=== PATIENT | male | born 1970 | race Caucasian/White ===

== ENCOUNTER 2019-08-14 19:06 | Emergency (ER) | payer OTHER ==
[~2019-08-14] VITALS: Ht 182.9 cm; Wt 115.7 kg
[~2019-08-14 19:06] MED LIST: DOXYCYCLINE 10100 M1 PO; FIRST-TESTOSTER60 G1 SUBQ
[2019-08-14] MEDS ORDERED: FLEXERIL PO (20:22)
[2019-08-14] MEDS ORDERED: NORCO 5-325 TA1 EAC1 PO (20:22)
[2019-08-14] MEDS ORDERED: ZOFRAN4 MG PO (20:22)
[2019-08-14] MEDS ORDERED: PREDNISONE 10 M10 MG PO (20:23)
[2019-08-14 20:40] VITALS: BP 151/78
== END 2019-08-14 20:41 | disposition home or self-care (01) ==
LOC: M.ERS 19:06
DX: S16.1XXA Strain of muscle, fascia and tendon at neck level, initial encounter (principal); M54.9 Dorsalgia, unspecified; V89.2XXA Person injured in unspecified motor-vehicle accident, traffic, initial encounter; Y92.89 Other specified places as the place of occurrence of the external cause; Y93.89 Activity, other specified; Y99.8 Other external cause status

== ENCOUNTER 2021-08-08 01:56 | Emergency (ER) | payer OTHER ==
[~2021-08-08] VITALS: Ht 182.9 cm; Wt 122.5 kg
[~2021-08-08 01:56] MED LIST changes: +FLEXERIL PO; +NORCO 5-325 TA1 EAC1 PO; +PREDNISONE 10 M10 MG PO; +ZOFRAN4 MG PO
[2021-08-08] MEDS ORDERED: COZAAR 25 MG TA25 MG PO (02:02)
[2021-08-08 03:33] LABS: CALCIUM 8.8 mg/dL (8.5-10.1); CREATININE 1.3 mg/dL (0.6-1.3); POTASSIUM 4.4 mmol/L (3.5-5.1)
[2021-08-08 03:37] LABS: ABSOLUTE BASOPHILS 0.1 thou/uL (0.0-0.2); ABSOLUTE EOSINOPHILS 0.2 thou/uL (0.0-0.7); ABSOLUTE LYMPHOCYTES 1.6 thou/uL (0.8-5.3); ABSOLUTE MONOCYTES 0.9 thou/uL (0.0-1.2); ABSOLUTE NEUTROPHILS 7.3 thou/uL (1.6-8.1); BASOPHILS 0.9 %; EOSINOPHILS 2.1 %; HEMATOCRIT 43.9 % (42.0-52.0); HEMOGLOBIN 15.2 gm/dL (14.0-18.0); LYMPHOCYTES 15.6 %; MCH 30.3 pg (26.0-34.0); MCHC 34.6 g/dL (28.0-37.0); MCV 87.6 fL (80.0-100.0); MONOCYTES 9.1 %; MPV 8.4 fl. (7.2-11.1); NUCLEATED RBCS 0 /100WBC; PLATELET COUNT* 246 thou/uL (150-400); POLYS 72.3 %; RDW-CV 14.1 % (10.5-14.5); WBC 10.2 thou/uL (4.0-11.0)
[2021-08-08 03:39] LABS: TOTAL BILIRUBIN 0.5 mg/dL (<0.1-1.0); TOTAL PROTEIN 6.5 g/dL (6.4-8.2)
[2021-08-08] MEDS ORDERED: ZOFRAN ODT4 MG PO (05:51)
[2021-08-08 05:57] LABS: URINE BILIRUBIN NEGATIVE (Negative); URINE BLOOD NEGATIVE (Negative); URINE CLARITY CLEAR; URINE COLOR YELLOW; URINE GLUCOSE-RANDOM NEGATIVE (Negative); URINE KETONES NEGATIVE (Negative); URINE LEUKOCYTES-REFLEX NEGATIVE (Negative); URINE NITRITE-REFLEX NEGATIVE (Negative); URINE PROTEIN NEGATIVE (Negative); URINE SPECIFIC GRAVITY 1.015 (1.005-1.030)
[2021-08-08 06:04] LABS: AMP/METHAMP Negative (Negative); BARBITURATES Negative (Negative); BENZODIAZEPINES Negative (Negative); COCAINE Negative (Negative); METHADONE Negative (Negative); OPIATES Negative (Negative); PCP Negative (Negative); THC POSITIVE (Negative)
[2021-08-08 06:12] VITALS: BP 113/65
--- NOTE | 2021-08-08 13:53 | EKG ---
[place] [address] ELECTROCARDIOGRAM REPORT Name: FRITZ WHITE Room: [facility]#: [id number] Admission: 08/08/21 Attend Phys: Discharge: 08/08/21 Date of : 70 Date of Service: 08/08/21 0154 Report #: [id number] THIS REPORT FOR: //name// [facility] ED Test Date: 2021-08-08 Test Time: 01:54:55 Pat Name: FRITZ WHITE Department: Room: Gender: Cath Lab Technologist: [place] : 1970 Requested By: Rosangela Robertson Order Number: [id number] MD: Alfredo Lucero Measurements Intervals [place] Rate: 63 P: 60 MA: 166 QRS: 68 QRSD: 107 T: 71 QT: 441 QTc: 452 Interpretive Statements Sinus rhythm No previous ECG available for comparison Electronically Signed On 08-08-2021 13:53:30 CDT by Alfredo Lucero [email or web address] <ELECTRONICALLY SIGNED> By: Alfredo Lucero MD, [facility] 08/08/21 1353 0154 0154 Alfredo Lucero MD, FACC /EPI
== END 2021-08-08 06:12 | disposition home or self-care (01) ==
LOC: M.ERS 01:56
PROVIDERS: Personal Emergency Response Attendant
DX: T40.7X1A Poisoning by cannabis (derivatives), accidental (unintentional), initial encounter (principal); Z20.822 Contact with and (suspected) exposure to COVID-19; F41.9 Anxiety disorder, unspecified; R11.2 Nausea with vomiting, unspecified; Z79.891 Long term (current) use of opiate analgesic; Z79.899 Other long term (current) drug therapy; Y92.89 Other specified places as the place of occurrence of the external cause